=== PATIENT | female | born 1995 | race Caucasian/White ===

== ENCOUNTER 2020-04-01 10:18 | Inpatient (IN) | payer OTHER, MEDICAID ==
[~2020-04-01] VITALS: Ht 162.6 cm; Wt 65.9 kg
[2020-04-01] MEDS: LACTATED RINGERS 1,000 ML IV SCH (10:40)
[2020-04-01] MEDS ORDERED: MAGNESIUM SULF. PMX 20GM/500ML 500 ML IV SCH (11:00)
[2020-04-01] MEDS: BETAMETHASONE 6 MG/ML, 5ML IM SCH (11:00)
[2020-04-01 11:23] LABS: BASOPHILS % (AUTO) 0 % (0-1); EOSINOPHILS % (AUTO) 0 % (1-7); LYMPHOCYTES % (AUTO) 6 % (22-44); MEAN CORPUSCULAR HEMOGLOBIN 31.2 pg (27.0-34.8); MEAN CORPUSCULAR HGB CONC 33.6 g/dL (32.4-35.8); MEAN PLATELET VOLUME 7.4 fL (7.4-10.4); MONOCYTES % (AUTO) 1 % (2-9); NEUTROPHILS % (AUTO) 93 % (42-75); PLATELET COUNT 286 x10^3/uL (130-400); RED BLOOD COUNT 3.76 x10^6/uL (3.82-5.3); RED CELL DISTRIBUTION WIDTH 13.5 % (9.6-15.2)
[2020-04-01 11:36] LABS: MICROSCOPIC INDICATED
[2020-04-01] MEDS ORDERED: MAGNESIUM SULF. PMX 20GM/500ML 500 ML IV ONE ×2 (11:36→19:47)
[2020-04-01 11:38] LABS: MD SCAN
[2020-04-01 11:44] LABS: AMPHETAMINE SCREEN, URINE Negative (Negative); BARBITURATE SCREEN, URINE Negative (Negative); BENZODIAZEPINE SCREEN, URINE Negative (Negative); CANNABINOID SCREEN, URINE Negative (Negative); COCAINE SCREEN, URINE Negative (Negative); METHADONE SCREEN, URINE Negative (Negative); OPIATE SCREEN, URINE Negative (Negative)
[2020-04-01] MEDS ORDERED: ONDANSETRON 2MG/ML, 2ML ONE (12:13)
[2020-04-01] MEDS: AMPICILLIN 2 GM in SODIUM CHLORIDE 0.9% 100 ML IV SCH ×4 (12:17→23:59)
[2020-04-01 12:18] LABS: ALBUMIN 2.8 g/dL (3.4-5.0); ANION GAP 11 mmol/L (5-15); CALCIUM 8.2 mg/dL (8.5-10.1); CHLORIDE 107 mmol/L (98-107)
[2020-04-01 12:24] LABS: ALANINE AMINOTRANSFERASE 20 U/L (12-78); ALKALINE PHOSPHATASE 148 U/L (45-117); BILIRUBIN,TOTAL 0.3 mg/dL (0.2-1.0); CREATININE 0.66 mg/dL (0.55-1.02); TOTAL PROTEIN 7.3 g/dL (6.4-8.2)
[2020-04-01] MEDS ORDERED: ONDANSETRON 2MG/ML, 2ML IVPush PRN (12:30)
[2020-04-01 13:58] VITALS: BP 117/69
[2020-04-01] MEDS: MAGNESIUM SULF. PMX 20GM/500ML 500 ML IV SCH (19:53)
[2020-04-01] MEDS: DOCUSATE 100 MG CAPSULE PO SCH (21:00)
[2020-04-02] MEDS: AMPICILLIN 2 GM in SODIUM CHLORIDE 0.9% 100 ML IV SCH ×4 (04:14→16:17)
[2020-04-02] MEDS ORDERED: BETAMETHASONE 6 MG/ML, 5ML IM ONE (07:38)
[2020-04-02] MEDS: BETAMETHASONE 6 MG/ML, 5ML IM SCH (07:40)
[2020-04-02] MEDS ORDERED: PRENATAL VIT/IRON/FA 1 EACH TABLET ONE (07:49)
[2020-04-02] MEDS ORDERED: DOCUSATE 100 MG CAPSULE ONE ×2 (07:49→19:45)
[2020-04-02] MEDS ORDERED: ACETAMINOPHEN 325 MG TABLET ONE (07:49)
[2020-04-02] MEDS: ACETAMINOPHEN 325 MG TABLET PO PRN (07:52)
[2020-04-02] MEDS: DOCUSATE 100 MG CAPSULE PO SCH ×2 (07:52→20:33)
[2020-04-02] MEDS: PRENATAL VIT/IRON/FA 1 EACH TABLET PO SCH (07:52)
[2020-04-02] MEDS ORDERED: MAGNESIUM SULF. PMX 20GM/500ML 500 ML IV SCH (11:00)
[2020-04-02] MEDS ORDERED: MAGNESIUM SULF. PMX 20GM/500ML 500 ML IV ONE (16:22)
[2020-04-02] MEDS: MAGNESIUM SULF. PMX 20GM/500ML 500 ML IV SCH (16:25)
[2020-04-02 19:05] VITALS: BP 96/52
[2020-04-02] MEDS: LACTATED RINGERS 1,000 ML IV SCH (20:33)
[2020-04-03] MEDS ORDERED: MAGNESIUM SULF. PMX 20GM/500ML 500 ML IV ONE (04:32)
[2020-04-03] MEDS ORDERED: DOCUSATE 100 MG CAPSULE ONE (08:43)
[2020-04-03] MEDS ORDERED: PRENATAL VIT/IRON/FA 1 EACH TABLET ONE (08:43)
[2020-04-03] MEDS: DOCUSATE 100 MG CAPSULE PO SCH ×2 (08:46→21:00)
[2020-04-03] MEDS: PRENATAL VIT/IRON/FA 1 EACH TABLET PO SCH (08:46)
[2020-04-03] MEDS ORDERED: MAGNESIUM SULF. PMX 20GM/500ML 500 ML IV SCH (16:00)
[2020-04-03] MEDS ORDERED: TERBUTALINE 1 MG/ML, 1ML SQ PRN (19:30)
[2020-04-03] MEDS ORDERED: FENTANYL PF 100 MCG/2ML IVPush PRN (19:30)
[2020-04-03] MEDS ORDERED: OXYTOCIN 30U/ 0.9% NaCL 500ML 500 ML IV ONE (19:30)
[2020-04-03] MEDS ORDERED: TERBUTALINE 1 MG/ML, 1ML IVPush PRN (19:30)
[2020-04-03] MEDS ORDERED: FENTANYL PF 100 MCG/2ML ONE (19:35)
[2020-04-03] MEDS: LACTATED RINGERS 1,000 ML IV SCH (19:37)
[2020-04-03] MEDS: FENTANYL PF 100 MCG/2ML IV PRN ×2 (19:38→22:24)
[2020-04-03 20:09] LABS: MICROSCOPIC NOT IND
[2020-04-03] MEDS: SODIUM CHLORIDE FLUSH 3ML SYRINGE IVF SCH (21:00)
[2020-04-04] MEDS ORDERED: FENTANYL PF 100 MCG/2ML ONE ×3 (01:50→19:42)
[2020-04-04] MEDS: FENTANYL PF 100 MCG/2ML IV PRN ×5 (01:52→20:34)
[2020-04-04] MEDS ORDERED: PRENATAL VIT/IRON/FA 1 EACH TABLET ONE (09:41)
[2020-04-04] MEDS: PRENATAL VIT/IRON/FA 1 EACH TABLET PO SCH (09:43)
[2020-04-04] MEDS ORDERED: DOCUSATE 100 MG CAPSULE ONE (09:44)
[2020-04-04] MEDS: DOCUSATE 100 MG CAPSULE PO SCH (09:45)
[2020-04-04] MEDS ORDERED: ACETAMINOPHEN 325 MG TABLET ONE (16:37)
[2020-04-04] MEDS: ACETAMINOPHEN 325 MG TABLET PO PRN (16:38)
[2020-04-04 19:23] VITALS: BP 118/66
[2020-04-04] MEDS ORDERED: PREN1TAB79 PO (20:22)
[2020-04-04] MEDS ORDERED: FERR325T5 PO (20:22)
[2020-04-04] MEDS: SODIUM CHLORIDE FLUSH 3ML SYRINGE IVF SCH (20:33)
[2020-04-04] MEDS ORDERED: DIPHENHYDRAMINE 50 MG/ML, 1ML IVPush PRN (21:30)
[2020-04-04] MEDS ORDERED: DIPHENHYDRAMINE 50 MG/ML, 1ML ONE (21:32)
[2020-04-04] MEDS ORDERED: LIDOCAINE/PF 1.5%-EPI 1:200K, 30ML ONE (22:55)
[2020-04-04] MEDS ORDERED: NEWBORN KIT ONE (23:16)
[2020-04-04] MEDS ORDERED: LIDOCAINE 1%, 20ML ONE (23:22)
[2020-04-04] MEDS ORDERED: MISOPROSTOL 200 MCG TABLET ONE (23:22)
[2020-04-04] MEDS ORDERED: OXYTOCIN 30U/ 0.9% NaCL 500ML 500 ML ONE (23:23)
[2020-04-04] MEDS ORDERED: METOCLOPRAMIDE 5 MG/ML, 2ML IVPush PRN (23:30)
[2020-04-04] MEDS ORDERED: SODIUM CITRATE/CITRIC ACID 30 ML UDC PO PRN (23:30)
[2020-04-04] MEDS ORDERED: OXYTOCIN 30U/ 0.9% NaCL 500ML 500 ML IV PRN (23:30)
[2020-04-04] MEDS ORDERED: OXYTOCIN 30U/ 0.9% NaCL 500ML 500 ML IV ONE (23:30)
[2020-04-04 23:42] LABS: BASOPHILS % (AUTO) 0 % (0-1); EOSINOPHILS % (AUTO) 0 % (1-7); LYMPHOCYTES % (AUTO) 16 % (22-44); MEAN CORPUSCULAR HEMOGLOBIN 31.6 pg (27.0-34.8); MEAN CORPUSCULAR HGB CONC 34.2 g/dL (32.4-35.8); MONOCYTES % (AUTO) 6 % (2-9); NEUTROPHILS % (AUTO) 77 % (42-75); PLATELET COUNT 291 x10^3/uL (130-400); RED BLOOD COUNT 3.55 x10^6/uL (3.82-5.3); RED CELL DISTRIBUTION WIDTH 13.5 % (9.6-15.2)
[2020-04-04 23:43] LABS: MD NO
[2020-04-04] MEDS ORDERED: BUPIVACAINE 0.25% ONE (23:49)
[2020-04-04] MEDS ORDERED: FENTANYL/BUPIV./NS/PF 250 ML EPIDCONT ONE (23:49)
[2020-04-05] MEDS: LACTATED RINGERS 1,000 ML IV SCH (00:20)
[2020-04-05] MEDS ORDERED: LACTATED RINGERS 1,000 ML IV SCH (00:30)
[2020-04-05] MEDS ORDERED: LACTATED RINGERS 1,000 ML IVBOLUS PRN (00:30)
[2020-04-05] MEDS ORDERED: EPHEDRINE 50 MG/ML, 1ML IVPush PRN (00:30)
[2020-04-05] MEDS ORDERED: FENTANYL/BUPIV./NS/PF 250 ML EPIDCONT SCH (00:30)
[2020-04-05] MEDS ORDERED: OXYcodone/APAP 5/325MG TABLET PO PRN (06:30)
[2020-04-05] MEDS ORDERED: CARBOPROST TROMETHAMINE 250 MCG/ML, 1ML IM PRN (06:30)
[2020-04-05] MEDS ORDERED: DOCUSATE 100 MG CAPSULE PO PRN (06:30)
[2020-04-05] MEDS ORDERED: CALCIUM CARBONATE 500 MG TAB.CHEW PO PRN (06:30)
[2020-04-05] MEDS ORDERED: ACETAMINOPHEN 325 MG TABLET PO PRN ×3 (06:30)
[2020-04-05] MEDS ORDERED: SIMETHICONE 80 MG CHEW TAB PO PRN (06:30)
[2020-04-05] MEDS ORDERED: MISOPROSTOL 200 MCG TABLET PR PRN (06:30)
[2020-04-05] MEDS ORDERED: METHYLERGONOVINE 0.2 MG/ML IM PRN (06:30)
[2020-04-05] MEDS ORDERED: METOCLOPRAMIDE 5 MG/ML, 2ML IV PRN (06:30)
[2020-04-05] MEDS ORDERED: ONDANSETRON 2MG/ML, 2ML IV PRN (06:30)
[2020-04-05] MEDS ORDERED: ACETAMINOPHEN 325 MG TABLET ONE (06:33)
[2020-04-05] MEDS: ACETAMINOPHEN 325 MG TABLET PO PRN (06:34)
[2020-04-05] MEDS ORDERED: OXYTOCIN 30U/ 0.9% NaCL 500ML 500 ML ONE (06:52)
[2020-04-05] MEDS: OXYTOCIN 30U/ 0.9% NaCL 500ML 500 ML IV SCH ×2 (07:07→16:30)
[2020-04-05] MEDS ORDERED: OXYcodone/APAP 5/325MG TABLET ONE (07:49)
[2020-04-05] MEDS ORDERED: IBUPROFEN 600 MG TABLET ONE (07:50)
[2020-04-05] MEDS ORDERED: DOCUSATE 100 MG CAPSULE ONE (07:50)
[2020-04-05] MEDS ORDERED: PRENATAL VIT/IRON/FA 1 EACH TABLET ONE (07:50)
[2020-04-05] MEDS ORDERED: FERROUS SULFATE 325 MG TABLET ONE (07:51)
[2020-04-05] MEDS: PRENATAL VIT/IRON/FA 1 EACH TABLET PO SCH (07:52)
[2020-04-05] MEDS: DOCUSATE 100 MG CAPSULE PO SCH ×3 (07:52→20:21)
[2020-04-05] MEDS: OXYcodone/APAP 5/325MG TABLET PO PRN ×3 (07:53→20:21)
[2020-04-05] MEDS: FERROUS SULFATE 325 MG TABLET PO SCH (07:53)
[2020-04-05] MEDS: IBUPROFEN 600 MG TABLET PO PRN ×3 (07:53→20:20)
[2020-04-05 09:30] VITALS: BP 106/69
[2020-04-05 13:00] VITALS: BP 132/84
[2020-04-05 14:00] LABS: BASOPHILS % (AUTO) 0 % (0-1); EOSINOPHILS % (AUTO) 0 % (1-7); LYMPHOCYTES % (AUTO) 8 % (22-44); MEAN CORPUSCULAR HEMOGLOBIN 31.7 pg (27.0-34.8); MEAN CORPUSCULAR HGB CONC 34.4 g/dL (32.4-35.8); MEAN PLATELET VOLUME 7.5 fL (7.4-10.4); MONOCYTES % (AUTO) 4 % (2-9); NEUTROPHILS % (AUTO) 88 % (42-75); PLATELET COUNT 271 x10^3/uL (130-400); RED BLOOD COUNT 3.55 x10^6/uL (3.82-5.3); RED CELL DISTRIBUTION WIDTH 13.7 % (9.6-15.2)
[2020-04-05 14:03] LABS: MD NO
[2020-04-05 16:26] VITALS: BP 112/74
[2020-04-05 20:00] VITALS: BP 108/74
[2020-04-05] MEDS ORDERED: DIPHENHYDRAMINE 50 MG/ML, 1ML IVPush PRN (21:00)
[2020-04-06] MEDS: OXYTOCIN 30U/ 0.9% NaCL 500ML 500 ML IV SCH ×3 (02:30→22:30)
[2020-04-06 02:45] VITALS: BP 105/75
[2020-04-06] MEDS: IBUPROFEN 600 MG TABLET PO PRN ×3 (02:51→23:22)
[2020-04-06] MEDS: OXYcodone/APAP 5/325MG TABLET PO PRN ×4 (02:52→23:20)
[2020-04-06] MEDS: PRENATAL VIT/IRON/FA 1 EACH TABLET PO SCH (07:50)
[2020-04-06] MEDS: FERROUS SULFATE 325 MG TABLET PO SCH (07:51)
[2020-04-06] MEDS: DOCUSATE 100 MG CAPSULE PO SCH ×2 (07:51→20:30)
[2020-04-06 08:00] VITALS: BP 104/71
[2020-04-06 14:35] VITALS: BP 104/69
[2020-04-06] MEDS ORDERED: GENTAMICIN PER PHARMACY MC PRN (15:30)
[2020-04-06] MEDS ORDERED: PHARMACOKINETIC MONITORING MC PRN (15:30)
[2020-04-06] MEDS: AMPICILLIN 2 GM in SODIUM CHLORIDE 0.9% 100 ML IV SCH ×2 (15:38→21:20)
[2020-04-06] MEDS: GENTAMICIN 120 MG in SODIUM CHLORIDE 0.9% 50 ML IV SCH ×2 (16:10→23:47)
[2020-04-06 19:00] VITALS: BP 99/66
[2020-04-06] MEDS ORDERED: DIPH,PERTUSS(ACELL),TET VAC/PF NC IM-VACC ONE (22:12)
[2020-04-07 00:04] VITALS: BP 104/67
[2020-04-07] MEDS: OXYTOCIN 30U/ 0.9% NaCL 500ML 500 ML IV SCH ×2 (00:09→18:30)
[2020-04-07] MEDS: OXYcodone/APAP 5/325MG TABLET PO PRN ×3 (03:23→13:00)
[2020-04-07] MEDS: AMPICILLIN 2 GM in SODIUM CHLORIDE 0.9% 100 ML IV SCH ×4 (03:26→21:34)
[2020-04-07 03:37] VITALS: BP 104/71
[2020-04-07 07:09] LABS: ALBUMIN 2.4 g/dL (3.4-5.0); ANION GAP 8 mmol/L (5-15); CALCIUM 8.4 mg/dL (8.5-10.1); CHLORIDE 107 mmol/L (98-107)
[2020-04-07 07:12] LABS: ALANINE AMINOTRANSFERASE 28 U/L (12-78); ALKALINE PHOSPHATASE 124 U/L (45-117); BILIRUBIN,TOTAL 0.2 mg/dL (0.2-1.0); CREATININE 0.72 mg/dL (0.55-1.02); TOTAL PROTEIN 6.6 g/dL (6.4-8.2)
[2020-04-07 07:15] LABS: BASOPHILS % (AUTO) 0 % (0-1); EOSINOPHILS % (AUTO) 1 % (1-7); LYMPHOCYTES % (AUTO) 13 % (22-44); MEAN CORPUSCULAR HEMOGLOBIN 32.3 pg (27.0-34.8); MEAN CORPUSCULAR HGB CONC 34.5 g/dL (32.4-35.8); MEAN PLATELET VOLUME 7.1 fL (7.4-10.4); MONOCYTES % (AUTO) 6 % (2-9); NEUTROPHILS % (AUTO) 80 % (42-75); PLATELET COUNT 253 x10^3/uL (130-400); RED BLOOD COUNT 3.42 x10^6/uL (3.82-5.3); RED CELL DISTRIBUTION WIDTH 13.6 % (9.6-15.2)
[2020-04-07 07:35] LABS: MD SCAN
[2020-04-07 07:48] VITALS: BP 117/78
[2020-04-07] MEDS: IBUPROFEN 600 MG TABLET PO PRN ×3 (07:50→21:37)
[2020-04-07] MEDS: FERROUS SULFATE 325 MG TABLET PO SCH (07:50)
[2020-04-07] MEDS: DOCUSATE 100 MG CAPSULE PO SCH ×2 (07:51→21:37)
[2020-04-07] MEDS: PRENATAL VIT/IRON/FA 1 EACH TABLET PO SCH (07:51)
[2020-04-07] MEDS: GENTAMICIN 120 MG in SODIUM CHLORIDE 0.9% 50 ML IV SCH ×2 (07:59→17:00)
[2020-04-07 12:45] VITALS: BP 113/73
[2020-04-07 19:30] VITALS: BP 106/73
[2020-04-08] VITALS: BP 102/68
[2020-04-08] MEDS: OXYcodone/APAP 5/325MG TABLET PO PRN ×2 (00:10→22:15)
[2020-04-08] MEDS: AMPICILLIN 2 GM in SODIUM CHLORIDE 0.9% 100 ML IV SCH ×3 (03:44→16:47)
[2020-04-08 04:20] VITALS: BP 104/70
[2020-04-08] MEDS: OXYTOCIN 30U/ 0.9% NaCL 500ML 500 ML IV SCH ×2 (04:30→14:30)
[2020-04-08 09:10] VITALS: BP 108/70
[2020-04-08] MEDS: DOCUSATE 100 MG CAPSULE PO SCH (09:12)
[2020-04-08] MEDS: IBUPROFEN 600 MG TABLET PO PRN ×2 (09:12→22:14)
[2020-04-08] MEDS: SERTRALINE 100MG TABLET PO SCH (09:12)
[2020-04-08] MEDS: PRENATAL VIT/IRON/FA 1 EACH TABLET PO SCH (09:12)
[2020-04-08] MEDS: FERROUS SULFATE 325 MG TABLET PO SCH (09:12)
[2020-04-08] MEDS: GENTAMICIN 120 MG in SODIUM CHLORIDE 0.9% 50 ML IV SCH ×2 (09:13)
[2020-04-08 22:05] VITALS: BP 115/70
[2020-04-09] MEDS: OXYTOCIN 30U/ 0.9% NaCL 500ML 500 ML IV SCH (00:30)
[2020-04-09 07:40] VITALS: BP 104/65
[2020-04-09] MEDS: FERROUS SULFATE 325 MG TABLET PO SCH (09:18)
[2020-04-09] MEDS: PRENATAL VIT/IRON/FA 1 EACH TABLET PO SCH (09:18)
[2020-04-09] MEDS: SERTRALINE 100MG TABLET PO SCH (09:18)
[2020-04-09] MEDS ORDERED: IBUP-1222 PO (10:08)
[2020-04-09] MEDS ORDERED: DOCU-131 PO (10:08)
== END 2020-04-09 13:40 | disposition home or self-care (01) | DRG 806 ==
LOC: LDIP 10:18 → 2NW 04-05 08:21
PROVIDERS: ADMIT Obstetrics & Gynecology Maternal & Fetal Medicine; ATTEND Obstetrics & Gynecology Maternal & Fetal Medicine
PROC: 0T9B70Z Drainage of Bladder with Drainage Device, Via Natural or Artificial Opening (ICD-10-PCS; 2020-04-01)
PROC: 10E0XZZ Delivery of Products of Conception, External Approach (ICD-10-PCS; principal; 2020-04-05)
DX: O32.6XX0 Maternal care for compound presentation, not applicable or unspecified (principal); O86.12 Endometritis following delivery; Z37.0 Single live birth; O34.03 Maternal care for unspecified congenital malformation of uterus, third trimester; Z3A.33 33 weeks gestation of pregnancy; Q51.9 Congenital malformation of uterus and cervix, unspecified
CPT/HCPCS: 36415; J3490; 80053; 80170; 80307; 81001; 81003; 83735; 84550; 85025; 86592; 86850; 86900; 87086; 88307; G0378; J0290; J0702; J2405; J3010; J1200; J1580; J2590; J3475; J7120; U0003